=== PATIENT | female | born 1980 | race African-American/Black ===

== ENCOUNTER 2021-09-12 17:10 | Emergency (ER) | payer BC, SELFPAY ==
[2021-09-12] VITALS (10 sets, daily range): BP systolic 141–160; BP diastolic 77–103; PULSE 72–103; RESP 16–20; O2SAT 96–100
--- NOTE | ~2021-09-12 | XR_ITS ---
EXAMINATION: XR chest 2V EXAM DATE: 09/12/2021 17:34 INDICATION: Left-sided chest pain. TECHNIQUE: Frontal and lateral projections of the chest obtained and reviewed. Comparison is made to prior examination from 01/14/2019. FINDINGS: The lungs are clear. There are no pleural effusions. The cardiomediastinal silhouette is within normal limits. There is no pneumothorax suspected. The bones and soft tissues are unremarkab le. IMPRESSION: No acute cardiopulmonary findings. Reviewed, dictated and finalized at location A. SUPERVISOR
--- NOTE | 2021-09-12 17:23 | ECG_ITS ---
Measurements Intervals [place] Rate: 82 P: 22 VA: 175 QRS: 40 QRSD: 71 T: -3 QT: 353 QTc: 414 Interpretive Statements SINUS RHYTHM WITH SINUS ARRHYTHMIA NONSPECIFIC T-WAVE ABNORMALITY- ANTEROLAT/INF LEADS BORDERLINE ECG Electronically Signed On 09-12-2021 18:41:37 [facility] [place] by Edd Peterson D.O.
[2021-09-12 17:46] LABS: Basophils Absolute Auto 0.1 K/mm3 (0.0-0.1); Basophils Percent Auto 0.5 % (0.2-1.2); Eosinophils Absolute Auto 0.3 K/mm3 (0-0.3); Eosinophils Percent Auto 2.4 % (0-4.4); Hematocrit 37.3 % (37.0-47.0); Immature Granulocyte Absolute 0.03 K/mm3 (0.00-0.031); Immature Granulocyte Percent A 0.3 % (0-0.5); Lymphocytes Absolute Auto 3.23 K/mm3 (0.9-3.2); Lymphocytes Percent Auto 31.5 % (18.3-44.2); Mean Corpuscular HGB Conc 32.2 g/dl (32-36); Mean Corpuscular Hemoglobin 28.5 pg (26-34); Mean Corpuscular Volume 88.6 fl (80-100); Mean Platelet Volume 10.6 fl (7.4-10.4); Monocytes Absolute Auto 0.8 K/mm3 (0.1-0.6); Monocytes Percent Auto 7.4 % (2.6-8.5); Neutrophils Absolute Auto 5.9 K/mm3 (1.3-6.7); Neutrophils Percent Auto 57.9 % (45.5-73.1); Platelet Count Result 342 k/mm3 (150-375); Red Blood Count 4.21 M/mm3 (4.2-5.4); Red Cell Distribution Width 13.4 % (11.5-14.5); White Blood Count 10.3 K/mm3 (4.5-10.0)
[2021-09-12 17:56] LABS: Anion Gap 9 mmol/L (8-16); Blood Urea Nitrogen 10 mg/dL (7-17); Calcium 9.5 mg/dL (8.4-10.2); Carbon Dioxide 24 mmol/L (22-30); Chloride 104 mmol/L (98-107); Estimated CRCL calculation 86 ml/min; Estimated Glomerular Filt Rate > 60; Glucose 109 mg/dL (65-110); Potassium 3.8 mmol/L (3.4-5.0); Sodium 137 mmol/L (137-145)
[2021-09-12 17:59] LABS: Prothrombin Time 13.2 Seconds (11.1-14.7)
[2021-09-12 18:00] LABS: Partial Thromboplastin Time 29.6 SECONDS (22.3-36.8)
[2021-09-12 18:08] LABS: Troponin I < 0.012 ng/mL (0.000-0.034)
--- NOTE | 2021-09-12 18:47 | ED.CHESTPAIN ---
HPI - Chest Pain General Chief Complaint: Chest Pain Stated Complaint: chest pain Time Seen by Provider: 09/12/21 18:39 Source: RN notes reviewed History of Present Illness HPI narrative: Patient presents emergency room from home for chest pain. Patient states that chest pain is located in the left upper lateral chest and is described as aching in nature she states that it is intermittent and lasts approximately 1 to 2 minutes and then resolves she states she has 1-2 episodes a day and has been ongoing for the past 1 month. States the symptoms seem to occur after she received her Covid booster in that left arm approximately a month ago she denies any shortness of breath with it. Patient states that wearing a bra seems to make it worse and that heating pad makes it better she denies any fevers or chills shortness of breath abdominal pain nausea vomiting or any other Related Data Home Medications Medication Instructions Recorded Confirmed losartan 09/12/21 Allergies Allergy/AdvReac Type Severity Reaction Status Date / Time No Known Allergies Allergy Verified 09/12/21 17:12 Review of Systems Review of Systems: Gen.: Denies fevers or chills Eyes: Denies eye pain or visual change ENT: Denies congestion Respiratory: Denies shortness of breath or cough CV: See HPI GI: Denies abdominal pain nausea, emesis or diarrhea Musculoskeletal: Denies back pain or muscle pain Neuro: Denies numbness, tingling, weakness or focal weakness Skin: Denies rash Except as documented, all other systems reviewed and negative [facility] Past Medical History Medical History (Updated 09/12/21 @ 21:03 by Sy Hernandez DO) Hypertension Family History Family History (Updated 06/28/14 @ 07:13 by DOCTOR UNKNOWN) Father Cerebrovascular accident Grandparent Family history of coronary artery disease Diabetes mellitus Other Family history of malignant neoplasm of male breast Social History Social History Smoking status: Never smoker Second hand tobacco smoke exposure: No Alcohol intake: current Exam Narrative: APPEARANCE: No acute distress, nontoxic, resting in bed EYES: EOMI HEENT: Normocephalic, atraumatic, OMM RESPIRATORY: No respiratory distress Clear to auscultation bilaterally with no rhonchi wheezing or rales. CARDIOVASCULAR: Regular rate and rhythm without murmurs rubs or gallops. Chest: Tender palpation of the left anterior lateral chest wall in the region of ribs 3 and 4 with point tenderness present no overlying erythema or ecchymosis ABDOMINAL: Soft, nontender, nondistended, no rebound or guarding MUSCULOSKELETAl: Moves all extremities. No clubbing, cyanosis or edema. NEURO: Awake and alert. Following commands, speech normal, no focal deficits SKIN:: Warm, dry. No rashes lesions or abrasions PSYCHIATRIC: Normal affect/mood, Course Course Emergency Course: Patient states she cannot wait for serial troponin states she has to leave at this time to go excelsior pick[employer] her daughter. I discussed the risks and benefits of not obtaining a 3-hour troponin patient understands the risks and wishes to leave at this time discussed risk of and permanent disability Discussed with patient results of workup and diagnosis. Discussed need for follow-up with primary care, proper use of medication, and reasons to return to the emergency department. Patient understands and agrees to current treatment plan Vital Signs Vital signs: Vital Signs Pulse Rate 103 H 09/12/21 17:22 Respiratory Rate 16 09/12/21 17:22 Blood Pressure 146/83 H 09/12/21 17:22 Pulse Oximetry 100 09/12/21 17:22 Pulse Rate 76 09/12/21 20:15 Respiratory Rate 18 09/12/21 20:15 Blood Pressure 147/77 H 09/12/21 19:16 Pulse Oximetry 100 09/12/21 20:15 MDM - Chest Pain MDM Narrative Medical decision making narrative: Patient's EKGs and labs are without significant high risk changes. Ca
--- NOTE | 2021-09-12 18:48 | PC.NURSE ---
Added D Dimer on 18:49
[2021-09-12 19:01] LABS: D Dimer 0.29 ug/mL (<0.48)
[2021-09-12] MEDS: ASPIRIN 81 MG CHEWABLE TABLET 324 MG PO (19:08)
--- NOTE | 2021-09-12 20:38 | PC.NURSE ---
Pt refused 2nd troponin. ED MD Hernandez notified.
--- NOTE | 2021-09-12 21:19 | PC.NURSE ---
Pt had removed all monitoring equipment prior to d/c. Did not obtain last set of vitals. pt denied chest pain. a/o x 4. resps even/nonlabored. ambulatory out of ED c steady, even, unassisted gait.
== END 2021-09-12 21:23 | disposition home or self-care (01) ==
PROVIDERS: Emergency Medicine; Emergency Provider Emergency Medicine
DX: R07.89 Other chest pain (principal); I10 Essential (primary) hypertension
CPT/HCPCS: 36415; 71046; 80048; 84484; 85025; 85380; 85610; 85730; 93005; 99284; A9270